=== PATIENT | female | born 1985 | race Caucasian/White ===

== ENCOUNTER 2025-07-05 11:35 | Emergency (ER) | payer MEDICAID, SELFPAY ==
[2025-07-05] VITALS (8 sets, daily range): BP systolic 109–127; BP diastolic 66–92; PULSE 90–793; RESP 9–18; TEMP 36.6–36.7; O2SAT 100; BMI 40.3
--- NOTE | 2025-07-05 11:42 | EKG_ITS ---
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
--- NOTE | 2025-07-05 12:03 | XR_ITS ---
Examination: AP chest single view Technique one AP portable upright chest single view Date and time: July 05, 2025, 12:41 PM, comparison April 10, 2008. INDICATIONS: Chest pain shortness of breath today. FINDINGS: Normal heart size. Lungs are clear. The osseous structures are mildly demineralized. IMPRESSION: No active disease.
[2025-07-05] MEDS: ADENOSINE INJ 3 MG/ML VIAL 6 MG IVP (12:17)
[2025-07-05] MEDS: ADENOSINE INJ 3 MG/ML VIAL 12 MG IVP (12:19)
[2025-07-05] MEDS: ONDANSETRON INJ 2 MG/ML INJ 2 ML 4 MG IV (12:29)
--- NOTE | 2025-07-05 12:52 | PC.NURSE ---
Patient presents to ED with c/o palpitations that woke her up at 11 am today. Patient is alert and oriented, ambulatory with spouse at bedside. Patient lives with spouse, updated with plan of care, call light placed within reach.
--- NOTE | 2025-07-05 12:54 | EDNOTE_ITS ---
ED Arrhythmia Palp. RME/HPI General Chief Complaint: Arrhythmia/Palpitations Stated Complaint: HEART RACING Time Seen by Provider: 07/05/25 12:34 Arrival date/time: 07/05/25 11:35 RME / HPI RME / HPI narrative: 39 year old female with history of anxiety presents to the ED for evaluation of my heart is racing beginning at ~ 11:00 AM today. Accompanied by nausea and feeling anxious. Reportedly had experienced similar heart racing sensation 1 week ago while having an anxiety attack that resolved after vomiting. States she is unsure if her symptoms today are due to feeling anxious. Denies fevers, chills, sweats, chest pain, shortness of breath, abdominal pain, vomiting, diarrhea, or urinary symptoms. Related Data Home Medications ?Medication ?Instructions ?Recorded ?Confirmed albuterol sulfate 90 mcg/actuation 1 puff inhalation Q ID 09/01/19 09/01/19 aerosol inhaler (Ventolin HFA) metformin 750 mg tablet,extended 750 mg PO QPM 9 09/01/19 release 24 hr montelukast 10 mg tablet 10 mg PO QDAY 09/01/1909/01 paroxetine HCl 30 mg tablet 30 mg PO QAM 09/01/1908/04 Allergies Allergy/AdvReac Type Severity Reaction Status Date / Time Penicillins Allergy Severe Hives Verified 07/05/25 11:39 Review of Systems Review of Systems Systems Reviewed: All systems reviewed, normal except as documented Past Medical History Past Medical History CARDIAC: Positive Cardiac Arrhythmia GASTROINTESTINAL: Positive Gastrointestinal Disorders (IBS), Gastroesophageal Reflux Disease and Obesity MUSCULOSKELETAL: Positive Fibromyalgia ENDOCRINE: Positive Diabetes Mellitus Type 2 PSYCHO/SOCIAL: Positive Depression, Anxiety and Attention Deficit Hyperactivity Disorder Surgical History SURGICAL: Positive Abdominal Surgery and Section OTHER SURGICAL HX: RIGHT OVARIAN CYST, EAR TUBES Social History SMOKING STATUS: Current every day smoker ED Exam Narrative Physical exam: GENERAL APPEARANCE: alert and oriented x 4, well-developed, well-nourished, no acute distress HEENT: Normocephalic, atraumatic; pupils equal, round, reactive to light; EOMI; mucous membranes pink, moist; oropharynx clear NECK: Supple LUNGS: CTABL; no wheezes, no rales, no rhonchi HEART: Tachycardic; normal S1, S2; no murmurs ABDOMEN: non distended; normal BS; soft, no tenderness, no guarding, no rebound; no masses, no organomegaly, no hernia BACK: no CVA tenderness EXTREMITIES: atraumatic; no edema NEUROLOGIC: awake; alert and oriented x4; cranial nerves II-XII grossly intact; no focal sensory or motor deficits PSYCHIATRIC: appropriate mood and affect SKIN: warm, dry, normal color; no rashes Course Quality Measures none Orders Category Date Time 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 NOW Care 07/05/25 12:03 Active EKG (ED ONLY) *Do not use* NOW Care 07/05/25 11:42 Completed Insert IV NOW Care 07/05/25 12:03 Active EKG (ED Only) Stat Exams 07/05/25 11:42 Draft XR chest 1V portable Stat Exams 07/05/25 12:03 Taken B-Type Natriuretic Peptide Stat Lab 07/05/25 12:35 Received CBC Stat Lab 07/05/25 12:35 Received Comprehensive Metabolic Panel Stat Lab 07/05/25 12:35 Received Drug Screen,Urine Stat Lab 07/05/25 12:03 Ordered Free T4 (Free Thyroxine) Stat Lab 07/05/25 12:35 Received HCG,Qualitative Serum Stat Lab 07/05/25 12:35 Received Magnesium Stat Lab 07/05/25 12:35 Received Partial Thromboplastin Time Stat Lab 07/05/25 12:35 Received Prothrombin Time with INR Stat Lab 07/05/25 12:35 Received TSH [Thyroid Stimulating Hormone] Stat Lab 07/05/25 12:35 Received Troponin I Stat Lab 07/05/25 12:35 Received Adenosine 6mg Inj [Adenocard Inj] Med 07/05/25 12:11 Discontinued 12 mg .ROUTE .STK-MED ONE Adenosine 6mg Inj [Adenocard Inj] Med 07/05/25 12:13 Discontinued 12 mg IVP X1 ONE Adenosine 6mg Inj [Adenocard Inj] Med 07/05/25 12:10 Discontinued 6 mg .ROUTE .STK-MED ONE Adenosine 6mg Inj [Adenocard Inj] Med 07/05/25 12:13 Discontinued 6 mg IVP X1 ONE Ondansetron Inj [Zofran Inj] Med 07/05/25 12:20 Discontinued 4 mg .ROUTE .STK-MED ONE Ondansetron Inj [Zofran Inj] Med 07/05/25 12:20 Discontinued 4 mg IV X1 ONE Vital Signs Vital signs: Vital Signs Temperature 98.1 F 07/05/25 11:57 Pulse Rate 195 H 07/05/25 11:57 Respiratory Rate 18 07/05/25 11:57 Pulse Oximetry (%) 100 07/05/25 11:57 Oxygen Delivery Method Room Air 07/05/25 11:57 Arrhythmia/Palpitations MDM Narrative MDM Narrative:: Masha Chua am scribing for and in the presence of Dr. Wells. 1213: Patient given 6mg Adenosine without change 1215: Patient given 12mg Adenosine with change. No sinus tachycardia on telemetry. Patient remains clinically stable after she converted to sinus rhythm,. We reviewed all the results, analysis, and treatment plans. Patient is amenable to discharge. Strict return precautions were outlined. Patient was discharged in stable condition. Patient data External records reviewed:: [facility] previous records (I reviewed ED visit on 09/01/2019 ) Clinical information provided by:: patient Social determinants that could affect healthcare access:: mental health Patient has the following chronic illnesses:: Anxiety How is presenting disease/condition affected by chronic disease/condition?: exacerbated by Evaluation data The following diagnostics were reviewed and interpreted by me:: lab results, radiology exam(s) and EKG tracing(s) (07/05/2025 @ 11:58 AM. SVT, rate 209, no ischemic changes, no STEMI. EKG #2 @ 12:15. Sinus tachycardia, rate 105, no acute ischemic changes, no STEMI. ) Lab and/or radiology exams considered but not ordered:: None Interpretation Summary: Ordering Physician: Dayday WHITE)Jhonny NP Date of Service: 07/05/25 Procedure(s): XR chest 1V portable Accession Number(s): [id number] cc: Dayday WHITE)Jhonny NP; Nain Kim MD~ Examination: AP chest single view Technique one AP portable upright chest single view Date and time: July 05, 2025, 12:41 PM, comparison April 10, 2008. INDICATIONS: Chest pain shortness of breath today. FINDINGS: Normal heart size. Lungs are clear. The osseous structures are mildly demineralized. IMPRESSION: No active disease. Dictated By: Nain Kim MD Signed By: <Electronically signed by Nain Kim MD in OV> 07/05/25 1313 Medications / Prescriptions Medications or Prescriptions considered but not ordered:: None Medication administrations:: Medication Administration History Discontinued Medications Adenosine (Adenosine Inj 3 Mg/Ml Vial) 6 mg IVP X1 ONE Stop: 07/05/25 12:14 Last Admin: 07/05/25 12:17 Dose: 6 mg Documented By: ROBERT Adenosine (Adenosine Inj 3 Mg/Ml Vial) Confirm Administered Dose 6 mg .ROUTE .STK-MED ONE Stop: 07/05/25 12:11 Last Admin: 07/05/25 12:20 Dose: Not Given Documented By: AA Non-Admin Reason: Duplicate Medication on eMAR Adenosine (Adenosine Inj 3 Mg/Ml Vial) Confirm Administered Dose 12 mg .ROUTE .STK-MED ONE Stop: 07/05/25 12:12 Last Admin: 07/05/25 12:20 Dose: Not Given Documented By: ROBERT Non-Admin Reason: Duplicate Medication on eMAR Adenosine (Adenosine Inj 3 Mg/Ml Vial) 12 mg IVP X1 ONE Stop: 07/05/25 12:14 Last Admin: 07/05/25 12:19 Dose: 12 mg Documented By: ROBERT Ondansetron HCl (Ondansetron Inj 2 Mg/Ml Inj 2 Ml) 4 mg IV X1 ONE; Protocol Stop: 07/05/25 12:21 Last Admin: 07/05/25 12:29 Dose: 4 mg Documented By: ROBERT Ondansetron HCl (Ondansetron Inj 2 Mg/Ml Inj 2 Ml) Confirm Administered Dose 4 mg .ROUTE .STK-MED ONE Stop: 07/05/25 12:21 Last Admin: 07/05/25 12:24 Dose: Not Given Documented By: DO Non-Admin Reason: Override Medication Consultations Consultation(s) initiated? (list below): No Diagnosis Most likely diagnosis given after review of the tests above:: SVT Admission Indicated Admission indicated?: not indicated Admission Request Was there a request for admission?: No Disposition Plan Disposition Plan: Discharge Discharge Attestation Discharge Attestation: The patient and all family members were given an opportunity to ask questions and understood the discharge instructions. Discharge instructions specifically effects, indications for sooner follow up or return to the emergency department, and the expected course of current diagnosis. Patient condition: Stable Critical Care Time Critical Care Time Critical Care Time: Yes Total Critical Care Time (min.): 35 Attestation: The high probability of sudden, clinically significant deterioration in the patient's condition required the highest level of my preparedness to intervene urgently. The services I provided to this patient were to treat and/or prevent clinically significant deterioration. Services included the following: chart data review, reviewing nursing notes and/or old charts, documentation time, sql server consultant collaboration regarding findings and treatment options, medication orders and management, direct patient care, vital sign assessments and ordering, interpreting and reviewing diagnostic studies and lab tests. Aggregate critical care time includes only time during which I was engaged in work directly related to the patient's care, as described above, whether at bedside or elsewhere in the Emergency Department. It did not include time spent performing other reported procedures or the services of residents, students, nurses or physician assistants. Discharge Plan Plan Patient Disposition: HOME (Self Care) Prescriptions/Referrals Prescriptions/Med Rec: No Action metformin 750 mg tablet extended release 24 hr 750 mg PO QPM Patient Comments: 1 TABLET WITH EVENING MEAL ONCE A DAY ORALLY 60 DAYS paroxetine HCl 30 mg tablet 30 mg PO QAM Patient Comments: TAKE 1 TABLET BY MOUTH EVERY DAY IN THE MORNING montelukast 10 mg tablet 10 mg PO QDAY Patient Comments: TAKE 1 TABLET BY MOUTH IN THE EVENING albuterol sulfate [Ventolin HFA] 90 mcg/actuation Hfa Aerosol Inhaler 1 puff INHALATION QID Problem List Clinical Impression: SVT (supraventricular tachycardia) Patient/Caregiver Discharge Instructions Education Materials: Understanding Supraventricular ... Print Language: Sami Stand Alone Forms: Brittanie Award Info., Patient Portal Info Letter
[2025-07-05 12:57] LABS: Basophils # (Auto) 0.2 Thou/mm3 (0.0-0.2); Basophils % (Auto) 1 % (0-2.5); Eosinophils # (Auto) 0.4 Thou/mm3 (0.0-0.5); Eosinophils % (Auto) 3 % (0-10); Hematocrit 41.0 % (36.0-46.0); Hemoglobin 13.9 g/dL (12.0-16.0); Immature Granulocytes Auto 0.07 Thou/mm3 (0.00-0.00); Lymphocytes # (Auto) 6.8 Thou/mm3 (1.0-4.8); Lymphocytes % (Auto) 40 % (10-50); Mean Corpuscular HGB Conc 33.9 g/dl (31.0-37.0); Mean Corpuscular Hemoglobin 29.3 pg (25.0-35.0); Mean Corpuscular Volume 87 fL (80-100); Monocytes # (Auto) 1.3 Thou/mm3 (0.0-0.8); Monocytes % (Auto) 8 % (0-12); Neutrophils # (Auto) 8.5 Thou/mm3 (1.8-7.7); Neutrophils % (Auto) 49 % (37-80); Nucleated Red Blood Cell # 0.00 Thou/mm3 (0.00-0.00); Nucleated Red Blood Cell % 0 /100 WBC (0); Platelet Count 647 Thou/mm3 (140-440); RDW Standard Deviation 44.2 fL (36.4-46.3); Red Blood Count 4.74 Miln/mm3 (4.00-5.20); White Blood Count 17.3 Thou/mm3 (3.6-11.0)
[2025-07-05 13:18] LABS: HCG,Qualitative Serum Negative
[2025-07-05 13:25] LABS: INR 1.0 (0.9-1.3); Partial Thromboplastin Time 25.5 Seconds (22.0-36.0); Prothrombin Time 11.2 Seconds (9.0-12.2)
[2025-07-05 13:28] LABS: B-Type Natriuretic Peptide < 20 pg/mL (0-100)
[2025-07-05 13:32] LABS: Alanine Aminotransferase 15 U/L (10-49); Albumin, Serum 4.5 gm/dL (3.5-5.0); Albumin/Globulin Ratio 1.7 (1.2-2.2); Alkaline Phosphatase 122 U/L (46-116); Anion Gap 16 (7-16); Aspartate Amino Transferase 16 U/L (0-34); BUN/Creatinine Ratio 6 Ratio (12-20); Bilirubin,Total 0.7 mg/dL (0.3-1.2); Blood Urea Nitrogen 7 mg/dL (9-23); Calcium 9.6 mg/dL (8.3-10.6); Calcium (Corrected) 9.6 mg/dL (8.5-10.1); Carbon Dioxide 19.5 mMol/L (20.0-31.0); Chloride 104 mMol/L (98-107); Creatinine (Component) 1.1 mg/dL (0.6-1.3); Estimated Creatinine Clearance 87.7 mL/min (>60); Free T4 (Free Thyroxine) 1.46 ng/dL (0.89-1.76); Globulin 2.6 gm/dL (2.3-3.5); Glucose 281 mg/dL (74-106); Magnesium 2.0 mg/dL (1.6-2.6); Osmolality,Calculated 285 (275-295); Potassium 3.5 mMol/L (3.4-5.1); Sodium 139 mMol/L (136-145); Thyroid Stimulating Hormone 4.91 uIU/mL (0.55-4.78); Total Protein 7.1 gm/dL (5.7-8.2); Troponin I < 0.002 ng/mL (0.0-0.045); eGFR > 60 See Note
[2025-07-05 14:30] LABS: Amphetamine/Methamp Scrn,U Negative (Negative); Barbiturate Screen,Urine Negative (Negative); Benzodiazepines Screen,Urine Negative (Negative); Benzoylecgonine Screen, Ur Negative (Negative); Fentanyl Screen,Urine Negative (Negative); Opiate Screen,Urine Negative (Negative); THC Screen,Urine Positive (Negative)
== END 2025-07-05 15:49 | disposition home or self-care (01) ==
LOC: SERX 14:08
PROVIDERS: Nurse Practitioner Primary Care; Emergency Provider Emergency Medicine
DX: I47.10 Supraventricular tachycardia, unspecified (principal)
CPT/HCPCS: 36415; 71045; 80053; 80307; 83735; 83880; 84439; 84443; 84484; 84703; 85025; 85610; 85730; 93005; 96374; 96375; 96376; 99283; J0153; J2405